=== PATIENT | male | born 1950 | race Caucasian/White ===

== ENCOUNTER → 2020-11-08 08:58 | Outpatient (CLI) | payer MEDICARE ==
[2020-11-09 10:12] LABS: HEPATITIS C ANTIBODY <0.1 S/CO RAT (0.0-0.9)
== END | disposition home or self-care (01) ==
LOC: D.US 07:30
PROVIDERS: ATTEND Internal Medicine Gastroenterology
DX: R74.8 Abnormal levels of other serum enzymes (principal)